=== PATIENT | female | born 1960 | race American Indian/Alaskan Native ===

== ENCOUNTER 2021-05-24 22:58 | Emergency (ER) | payer SELFPAY ==
[2021-05-25] MEDS ORDERED: METOPROLOL TARTRATE 50 MG TAB PO ONE (01:53)
--- NOTE | 2021-05-25 02:11 | Emergency Department Report ---
ED General Adult HPI - General Chief complaint: High BP Stated complaint: HBP PUI?: No Time Seen by Provider: 05/25/21 01:40 Source: patient Mode of arrival: Ambulatory Limitations: No Limitations - History of Present Illness Initial comments: Is a 60-year-old female who presents for medication refill for metoprolol and triamterene. Patient states no p.o. CSI next week however cannot see him until the end of the month. Patient denies symptoms no headache no dizziness no nausea no vomiting no chest pain or shortness of breath. Is been no fall injury or trauma. Onset/Timin Severity scale (0 -10): 5 - Related Data Previous Rx's Medication Instructions Recorded Last Taken Type Metoprolol [Lopressor TAB] 25 mg PO QDAY #30 05/25/21 Unknown Rx Triamterene/Hydrochlorothiazid 1 each PO DAILY #30 cap 05/25/21 Unknown Rx [Triamterene-Hctz 37.5-25 mg Cp] Allergies Allergy/AdvReac Type Severity Reaction Status Date / Time Penicillins Allergy Anaphylaxis Verified 05/25/21 01:02 ED Review of Systems ROS: Stated complaint: HBP Other details as noted in HPI Constitutional: denies: chills, fever Eyes: denies: eye pain, eye discharge, vision change ENT: denies: ear pain, throat pain Respiratory: denies: cough, shortness of breath, wheezing Cardiovascular: denies: chest pain, palpitations Endocrine: no symptoms reported Gastrointestinal: denies: abdominal pain, nausea, diarrhea Genitourinary: denies: urgency, dysuria, discharge Musculoskeletal: denies: back pain, joint swelling, arthralgia Skin: denies: rash, lesions Neurological: denies: headache, weakness, paresthesias, vertigo Psychiatric: as per HPI Hematological/Lymphatic: denies: easy bleeding, easy bruising ED Past Medical Hx - Medications Home Medications: Home Medications Medication Instructions Recorded Confirmed Last Taken Type Metoprolol [Lopressor TAB] 25 mg PO QDAY #30 05/25/21 Unknown Rx Triamterene/Hydrochlorothiazid 1 each PO DAILY #30 cap 05/25/21 Unknown Rx [Triamterene-Hctz 37.5-25 mg Cp] ED Physical Exam - General Limitations: No Limitations General appearance: alert, in no apparent distress - Head Head exam: Present: atraumatic, normocephalic - Eye Eye exam: Present: normal appearance, PERRL, EOMI Pupils: Present: normal accommodation - ENT ENT exam: Present: mucous membranes moist - Neck Neck exam: Present: normal inspection, full ROM. Absent: lymphadenopathy - Respiratory Respiratory exam: Present: normal lung sounds bilaterally. Absent: respiratory distress, wheezes - Cardiovascular Cardiovascular Exam: Present: regular rate, normal rhythm, normal heart sounds. Absent: systolic murmur, diastolic murmur, rubs, gallop - GI/Abdominal GI/Abdominal exam: Present: soft, normal bowel sounds. Absent: distended, tenderness - Rectal Rectal exam: Present: deferred - Extremities Exam Extremities exam: Present: normal inspection, full ROM, normal capillary refill. Absent: tenderness - Back Exam Back exam: Present: normal inspection, full ROM. Absent: CVA tenderness (R), CVA tenderness (L) - Neurological Exam Neurological exam: Present: alert, oriented X3, CN II-XII intact - Expanded Neurological Exam Expanded Patient oriented to: Present: person, place, time Speech: Present: fluid speech Motor strength exam: RUE: 5, LUE: 5, RLE: 5, LLE: 5 Best Eye Response (Long): (4) open spontaneously Best Motor Response (Long): (6) obeys commands Best Verbal Response ([place]): (5) oriented [place] Total: 15 - Psychiatric Psychiatric exam: Present: normal affect, normal mood - Skin Skin exam: Present: warm, dry, intact, normal color. Absent: rash ED Course Vital Signs 05/25/21 01:06 Temperature 98.3 F Pulse Rate 97 H Respiratory 20 Rate Blood Pressure 142/90 [Right] O2 Sat by Pulse 100 Oximetry ED Medical Decision Making - Medical Decision Making His medication refill plan referral triamterene and metoprolol follow-up with your primary care doctor as scheduled return to emergency department should symptoms worsen. Patient verbalized agreement and understanding with discharge plan. Patient DC'd home in stable condition at this time. Critical care attestation.: If time is entered above; I have spent that time in minutes in the direct care of this critically ill patient, excluding procedure time. ED Disposition Clinical Impression: Medication refill Disposition: HOME / SELF CARE / HOMELESS Is pt being admited?: No Does the pt Need Aspirin: No Condition: Stable Instructions: Triamterene capsules, Metoprolol tablets, DASH Eating Plan, Hypertension, Adult Additional Instructions: Take medications as prescribed. Follow-up with your doctor in 2 to 3 days. Prescriptions: Metoprolol [Lopressor TAB] 25 mg PO QDAY #30 Triamterene/Hydrochlorothiazid [Triamterene-Hctz 37.5-25 mg Cp] 1 each PO DAILY #30 cap Referrals: YURIY CLAUDIO MD [Staff Physician] - 3-5 Days Forms: Work/School Release Form(ED) Time of Disposition: 02:32
[2021-05-25 02:51] VITALS: BP 151/100
== END 2021-05-25 02:50 | disposition home or self-care (01) ==
LOC: ED 22:58
DX: Z76.0 Encounter for issue of repeat prescription (principal); Z88.0 Allergy status to penicillin
CPT/HCPCS: 99282